=== PATIENT | female | born 1955 | race Caucasian/White ===

== ENCOUNTER → 2017-11-01 | Outpatient (CLI) | payer BC ==
[2016-03-24 19:35] VITALS: BP 138/74
[~2017-11-01] MED LIST: BACLOFEN; CALCIUM 500500 M2 PO; CARAFATE1 GM; CENTRUM1 TAB PO; CLARITIN10 M1 PO; COUMADIN 2MG2 MG/TAB PO; COUMADIN2 MG PO; COUMADIN5 MG PO; CRESTOR 10MG10 MG PO; CRESTOR10 MG PO; ESTRACE0.1 MG/GM VG; FIORINAL W/CODE1 CA2 PO; FLEXERIL10 MG PO; HCTZ 25MG25 MG PO; HYOPHEN1 TAB PO; K-LOR CON PO; LASIX20 M1 PO; LEVOTHYROXINE0.05 MG PO; LISINOPRIL5 MG PO; MAXALT-MLT10 MG PO; MAXALT5 MG PO; NATURAL IRON65 MG PO; OMEGA 31000 MG PO; OMEPRAZOLE20 M1 PO; POTASS CHL20 MEQ/15 PO; PROBIOTIC1 EAC1 PO; PROTONIX20 M1 PO; SINGULAIR10 MG PO; SUDAFED PE10 MG PO; SYMBICORT1 AE3 IH; TYLENOL 325MG325 M1 PO; WARFARIN SOD5 MG PO; XOPENEX HF0.045 MG/A IH; [UNRECOGNIZED DRUG - OTHER] TOP
== END ==
LOC: MAMMO 12:56
DX: M85.89 Other specified disorders of bone density and structure, multiple sites (principal); Z79.899 Other long term (current) drug therapy

== ENCOUNTER 2019-03-29 09:30 | Outpatient (RCR) | payer MEDICARE, OTHER ==
[2016-03-24 19:35] VITALS: BP 138/74
== END 2019-03-29 10:00 ==
LOC: PT 09:30
DX: M25.472 Effusion, left ankle (principal); M25.572 Pain in left ankle and joints of left foot

== ENCOUNTER → 2019-04-16 | Outpatient (CLI) | payer MEDICARE, OTHER ==
[2016-03-24 19:35] VITALS: BP 138/74
== END ==
LOC: RAD 13:53
DX: Z13.89 Encounter for screening for other disorder (principal); M25.461 Effusion, right knee

== ENCOUNTER 2020-03-22 13:15 | Emergency (ER) | payer MEDICARE, OTHER ==
[~2020-03-22] VITALS: Wt 75.6 kg
[~2020-03-22 13:15] MED LIST changes: -COUMADIN 2MG2 MG/TAB PO; -CRESTOR 10MG10 MG PO; +CRESTOR40 MG PO; -MAXALT-MLT10 MG PO; +MAXALT10 M2 PO; +SINGULAIR PO; +WARFARIN SOD2 MG PO; +WARFARIN SODIUM1 MG PO
[2020-03-22] MEDS ORDERED: SYMBICORT1 AE3 IH (13:59)
[2020-03-22 14:04] LABS: HEMOGLOBIN 14.3 g/dL (12.5-16.0); MEAN CELL VOLUME 87 fl (78-100); MEAN CORPUSCULAR HEMOGLOBIN 28 pg (27-31); MEAN CORPUSCULAR HGB CONC 32 g/dL (33-37); MEAN PLATELET VOLUME 11.3 fl (7.4-10.4); PLATELET COUNT 211 K/mm3 (130-400); RED BLOOD COUNT 5.19 M/mm3 (4.10-5.30); RED CELL DISTRIBUTION WIDTH 13.7 % (11.5-14.5); WHITE BLOOD COUNT 12.8 K/mm3 (4.8-10.8)
[2020-03-22] MEDS ORDERED: SERTRALINE HYDR25 MG PO (14:04)
[2020-03-22] MEDS ORDERED: ESTRACE0.1 MG/GM VG (14:07)
[2020-03-22 14:08] LABS: ALBUMIN 4.1 g/dL (3.4-4.8)
[2020-03-22] MEDS ORDERED: IMPOYZ60 GM TOP (14:08)
[2020-03-22 14:09] LABS: POTASSIUM 3.9 mmol/L (3.5-5.1)
[2020-03-22 14:10] LABS: CALCIUM 9.3 mg/dL (8.3-10.5)
[2020-03-22] MEDS ORDERED: TRIAMCINOLONE430 GM TOP (14:10)
[2020-03-22] MEDS ORDERED: MUPIROCIN2% TP (14:10)
[2020-03-22 14:11] LABS: TOTAL PROTEIN 6.9 g/dL (6.2-8.1)
[2020-03-22 14:13] LABS: TOTAL BILIRUBIN 0.4 mg/dL (0.2-1.2)
[2020-03-22 14:18] LABS: PROTHROMBIN TIME 29.6 SECONDS (9.0-12.0)
[2020-03-22 14:28] LABS: NEUTROPHILS 79 % (42-75)
[2020-03-22 14:29] LABS: LYMPHOCYTE 16 % (20-51); MONOCYTE 5 % (3-10)
[2020-03-22 14:29] LABS: URINE APPEARANCE CLEAR; URINE BILIRUBIN NEGATIVE (NEGATIVE); URINE BLOOD TRACE (NEGATIVE); URINE COLOR YELLOW; URINE GLUCOSE NEGATIVE (NEGATIVE); URINE KETONE NEGATIVE (NEGATIVE); URINE LEUKOCYTE ESTERASE NEGATIVE (NEGATIVE); URINE NITRATE NEGATIVE (NEGATIVE); URINE PROTEIN(semi-quant) NEGATIVE (NEGATIVE); URINE UROBILINOGEN NORMAL (NORMAL)
[2020-03-22 14:40] LABS: URINE MUCUS PRESENT (NOT PRESENT); URINE WBC 0-1 /hpf (0-3)
[2020-03-22] MEDS ORDERED: AMOXICILLIN AND1 TA2 PO (16:27)
[2020-03-22] MEDS ORDERED: AMOXICILLIN AND50 M1 PO (16:41)
[2020-03-22 17:10] VITALS: BP 151/72
== END 2020-03-22 17:15 | disposition home or self-care (01) ==
LOC: ED 13:15
PROVIDERS: Family Medicine
DX: K57.92 Diverticulitis of intestine, part unspecified, without perforation or abscess without bleeding (principal); R55 Syncope and collapse; J45.909 Unspecified asthma, uncomplicated; Z86.73 Personal history of transient ischemic attack (TIA), and cerebral infarction without residual deficits; Z79.01 Long term (current) use of anticoagulants

== ENCOUNTER → 2020-04-08 | Outpatient (CLI) | payer MEDICARE, OTHER ==
[2020-03-22 17:10] VITALS: BP 151/72
[~2020-04-08] MED LIST changes: +AMOXICILLIN AND1 TA2 PO; +AMOXICILLIN AND50 M1 PO; +IMPOYZ60 GM TOP; +MUPIROCIN2% TP; +SERTRALINE HYDR25 MG PO; +TRIAMCINOLONE430 GM TOP
== END ==
LOC: RAD 11:17 → MAMMO 11:30
DX: Z13.820 Encounter for screening for osteoporosis (principal)

== ENCOUNTER → 2020-04-25 | Outpatient (CLI) | payer MEDICARE, OTHER | LOC: RAD 08:30 | PROVIDERS: Urology | DX: R31.9 Hematuria, unspecified (principal); Z90.49 Acquired absence of other specified parts of digestive tract; Z90.710 Acquired absence of both cervix and uterus | CPT/HCPCS: Q9967 ==

== ENCOUNTER 2022-03-15 10:51 | Emergency (ER) | payer MEDICARE ==
[~2022-03-15] VITALS: Ht 160 cm; Wt 75.6 kg
[2022-03-15 12:28] VITALS: BP 133/77
== END 2022-03-15 12:28 | disposition home or self-care (01) ==
LOC: ED 10:51
DX: S09.90XA Unspecified injury of head, initial encounter (principal); S00.83XA Contusion of other part of head, initial encounter; Z86.73 Personal history of transient ischemic attack (TIA), and cerebral infarction without residual deficits; Z79.01 Long term (current) use of anticoagulants; W07.XXXA Fall from chair, initial encounter; W22.8XXA Striking against or struck by other objects, initial encounter

== ENCOUNTER → 2022-09-21 | Outpatient (CLI) | payer MEDICARE | LOC: RAD 12:56 | DX: R60.0 Localized edema (principal); M25.562 Pain in left knee ==

== ENCOUNTER 2022-09-28 09:55 | Outpatient (RCR) | payer MEDICARE | END 2022-10-08 | disposition home or self-care (01) | LOC: PT | DX: M25.551 Pain in right hip (principal); M25.562 Pain in left knee ==